=== PATIENT | male | born 1990 | race Caucasian/White ===

== ENCOUNTER 2016-08-31 21:44 | Emergency (ER) | payer OTHER ==
--- NOTE | ~2016-08-31 | EKG ---
PATIENT: VIKAS GENAO UNIT #: [id number] Ventricular Rate: 99 BPM Atrial Rate: 99 BPM P-R Interval: 122 ms QRS Duration: 106 ms Q-T Interval: 350 ms QTC Calculation(Bezet): 449 ms P Steptoe: -2 degrees Calculated R Steptoe: -26 degrees Calculated T Steptoe: 5 degrees Diagnosis Line: Normal sinus rhythm with sinus arrhythmia Diagnosis Line: Incomplete right bundle branch block Diagnosis Line: Minimal voltage criteria for LVH, may be normal Diagnosis Line: variant Diagnosis Line: Borderline ECG Diagnosis Line: No previous ECGs available Diagnosis Line: Confirmed by JAIRO LOPEZ MD ([id number]) on 09/02/2016 Diagnosis Line: 10:56:54 PM INTERPRETING MD: JOHN ALMONTE
--- NOTE | ~2016-08-31 | CR72 ---
[facility] A Service of [facility] RADIOLOGY TEXT RESULTS PATIENT: VIKAS GENAO LOCATION: [facility] : [birth year] UNIT #: [id number] AGE: [address]: Tracie Gardner MD SEX: M ORDER DR: [id number] [facility] [address] [place], [place] [address] [id number] E MR#: [id number] Acc #: [id number] NAME: VIKAS GENAO : 1990 SEX: M STUDY DATE/TIME: 08/31/2016 22:43 UNIT: [facility] ROOM: STUDY DESCRIPTION: CR Chest Single View Portable Attending Physician: Tracie Gardner M.D. Referring Physician: Mary Jo Self Referred Ordering Physician: Ricardo Chang M.D. Primary Care Physician: No Primary Care Physician MEDICAL IMAGING REPORT This report is preliminary unless electronic signature is present EXAM Frontal chest, 08/31/2016. INDICATION 25-year-old male with chest pain today, altered mental status, cough, congestion. TECHNIQUE Frontal chest. COMPARISON STUDIES No comparisons. FINDINGS Cardiac silhouette is unremarkable. The vascularity is normal. Lungs are clear. IMPRESSION Negative frontal chest. We have no comparisons. Dictated by... Randell Farley M.D. THIS IS AN ELECTRONICALLY VERIFIED REPORT Randell Farley M.D. at 09/01/2016 9:58 PM ANIL/ivette TD: 09/01/2016 13:16 JOB #: [id number] MEDICAL IMAGING REPORT [facility] A Service of [facility] RADIOLOGY TEXT RESULTS PATIENT: VIKAS GENAO LOCATION: [facility] : [birth year] UNIT #: [id number] AGE: [address]: Tracie Gardner MD SEX: M ORDER DR: Page 1 of 1 COPY
[~2016-08-31 21:44] MED LIST: IBUPROFEN PO; KEFLEX PO; PROZAC PO; STRATTERA PO
[2016-09-01 00:19] LABS: BASOPHIL% 0.4 % (0-2.5); EOSINOPHIL# 0.4 X10e3 (0-0.7); EOSINOPHIL% 3.1 % (0.0-7.0); HEMATOCRIT 38.8 % (38.0-50.0); HEMOGLOBIN 13.1 gm/dL (13.0-16.0); LYMPHOCYTE# 2.2 X10e3 (1.0-3.5); LYMPHOCYTE% 19.1 % (17.0-45.0); MEAN CELL VOLUME 84.6 FL (83-96); MEAN CORPUSCULAR HEMOGLOBIN 28.5 PG (28-34); MEAN CORPUSCULAR HGB CONC 33.7 g/dL (30-36); MEAN PLATELET VOLUME 8.8 FL (6.5-11.5); MONOCYTE# 0.9 X10e3 (0-1.0); MONOCYTE% 7.4 % (3.0-12.0); NEUTROPHIL# 8.1 X10e3 (1.5-7.1); PLATELET COUNT 243 X10e3 (140-420); RED BLOOD COUNT 4.59 X10e (3.90-5.60); RED CELL DISTRIBUTION WIDTH 13.6 % (11.0-15.5); WHITE BLOOD COUNT 11.6 X10e3 (4.0-10.5)
[2016-09-01 00:21] LABS: DIFF IND NO
[2016-09-01 00:25] LABS: POC - CKMB <1.0 ng/mL (0.0-7.9); POC - TROPONIN <0.05 ng/mL (<=0.05)
[2016-09-01 00:35] LABS: ALBUMIN SERUM 4.5 g/dL (3.5-5.0); BILIRUBIN, DIRECT 0.1 mg/dL (0.0-0.2); BILIRUBIN,TOTAL 0.1 mg/dL (0.2-2.0); BUN/CREATININE RATIO 31.66; CALCIUM SERUM 9.1 mg/dL (8.4-10.2); CREATININE SERUM 0.6 mg/dL (0.6-1.4); GLOM FILT RATE Estimated 140.8 mL/min (>60); POTASSIUM 3.8 mmol/L (3.5-5.1); PROTEIN TOTAL SERUM 6.8 g/dL (6.0-8.3)
== END 2016-09-01 02:10 | disposition home or self-care (01) ==
LOC: CED 21:44
PROVIDERS: Emergency Medicine
DX: R07.89 Other chest pain (principal); F11.90 Opioid use, unspecified, uncomplicated; F17.210 Nicotine dependence, cigarettes, uncomplicated
CPT/HCPCS: 36415; 71010; 80048; 80076; 82553; 84484; 85025; 93005; 99284

== ENCOUNTER 2017-01-09 21:17 | Emergency (ER) | payer OTHER ==
[~2017-01-09] VITALS: Ht 188 cm; Wt 83.9 kg
== END 2017-01-09 22:35 | disposition home or self-care (01) ==
LOC: CED 21:17
DX: R22.0 Localized swelling, mass and lump, head (principal); R11.2 Nausea with vomiting, unspecified; T40.5X5A Adverse effect of cocaine, initial encounter; F17.210 Nicotine dependence, cigarettes, uncomplicated
CPT/HCPCS: 99283